=== PATIENT | female | born 1940 | race Caucasian/White ===

== ENCOUNTER 2022-09-16 09:23 | Outpatient (CLI) | payer MEDICARE, OTHER | END 2022-09-16 09:24 | disposition home or self-care (01) | LOC: CSHULT 09:23 | PROVIDERS: ATTEND Urology | DX: R33.9 Retention of urine, unspecified (principal); Z87.440 Personal history of urinary (tract) infections; N28.89 Other specified disorders of kidney and ureter; N28.1 Cyst of kidney, acquired | CPT/HCPCS: 76770 ==

== ENCOUNTER 2022-12-15 07:25 | Outpatient (CLI) | payer MEDICARE, OTHER | END 2022-12-15 07:26 | disposition home or self-care (01) | LOC: CSHCT 07:25 | PROVIDERS: ATTEND Urology | DX: N28.89 Other specified disorders of kidney and ureter (principal); K59.01 Slow transit constipation; N28.1 Cyst of kidney, acquired; D17.71 Benign lipomatous neoplasm of kidney; N94.89 Other specified conditions associated with female genital organs and menstrual cycle | CPT/HCPCS: 74178; 82565 ==